=== PATIENT | female | born 1985 | race African-American/Black ===

== ENCOUNTER 2016-05-10 01:36 | Emergency (ER) | payer MEDICAID ==
[~2016-05-10] VITALS: Ht 180.3 cm; Wt 167.6 kg
[~2016-05-10 01:36] MED LIST: BLOOD PRESSURE; BUSP10 PO; HYDR12.56 PO; NAPR500 PO; TYLE500T PO
[2016-05-10 01:41] VITALS: BP 146/84; PULSE 82; RESP 16; TEMP 98.3; O2SAT 96
== END 2016-05-10 04:42 | disposition left against medical advice (07) ==
LOC: NED 01:36
DX: R07.9 Chest pain, unspecified (principal)
CPT/HCPCS: 99281

== ENCOUNTER 2016-07-11 02:32 | Emergency (ER) | payer MEDICAID ==
[~2016-07-11] VITALS: Ht 177.8 cm; Wt 169.0 kg
[2016-07-11 02:43] VITALS: BP 184/82; PULSE 108; RESP 16; TEMP 98.9; O2SAT 98
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
[2016-07-11] MEDS ORDERED: TETANUS/DIPHTHERIA TOXOID ADULT 0.5 ML VIAL IM ONE (03:00)
--- NOTE | 2016-07-11 03:22 | RADRPT ---
EXAM DATE/TIME: 07/11/2016 03:18 [place] COMPARISON: No previous studies available for comparison. INDICATIONS : Back pain from trauma. MEDICAL HISTORY : None. SURGICAL HISTORY : None. ENCOUNTER: Initial ACUITY: 1 day PAIN SCORE: 6/10 LOCATION: Bilateral Lower back FINDINGS: Two view examination was performed. There are five non-rib bearing vertebral bodies. The vertebral bodies are in normal alignment without evidence of subluxation or scoliosis. The disc spaces are chevy ntained. The pedicles are intact. Bony mineralization is normal. No fracture is identified. CONCLUSION: Unremarkable limited examination of the lumbar spine. Tomi Silva MD on July 11, 2016 at 3:21 Board Certified Radiologist. This report was verified electronically.
== END 2016-07-11 04:45 | disposition home or self-care (01) ==
LOC: NEPD 02:32
DX: S61.216A Laceration without foreign body of right little finger without damage to nail, initial encounter (principal); S39.012A Strain of muscle, fascia and tendon of lower back, initial encounter; I10 Essential (primary) hypertension; F17.210 Nicotine dependence, cigarettes, uncomplicated; Y28.1XXA Contact with knife, undetermined intent, initial encounter; Y92.009 Unspecified place in unspecified non-institutional (private) residence as the place of occurrence of the external cause; Z23 Encounter for immunization
CPT/HCPCS: 12001; 72100; 90471; 90714

== ENCOUNTER 2016-12-11 22:21 | Emergency (ER) | payer MEDICAID, OTHER ==
[2016-12-11 22:44] VITALS: BP 167/89; PULSE 102; RESP 20; TEMP 98; O2SAT 100
[2016-12-11 22:52] LABS: AUTOMATED NEUTROPHIL # 5.2 TH/MM3 (1.8-7.7); BASOPHIL # 0.1 TH/MM3 (0-0.2); BASOPHIL % 0.9 % (0.0-2.0); EOSINOPHIL # 0.2 TH/MM3 (0-0.4); EOSINOPHIL % 1.9 % (0.0-4.0); HEMATOCRIT 32.9 % (35.0-46.0); HEMO FLAGS DIFF FINAL; LYMPH % 33.8 % (9.0-44.0); MEAN CELL VOLUME 73.4 FL (80.0-100.0); MEAN CORPUSCULAR HEMOGLOBIN 24.3 PG (27.0-34.0); MEAN CORPUSCULAR HGB CONC 33.1 % (32.0-36.0); MONO % 4.1 % (0.0-8.0); NEUT % 59.3 % (16.0-70.0); PLATELET COUNT 345 TH/MM3 (150-450); RED BLOOD COUNT 4.49 MIL/MM3 (4.00-5.30); RED CELL DISTRIBUTION WIDTH 17.4 % (11.6-17.2); WHITE BLOOD COUNT 8.8 TH/MM3 (4.0-11.0)
[2016-12-11 23:10] LABS: ALT (GPT) 27 U/L (10-53)
[2016-12-11 23:11] LABS: ALKALINE PHOSPHATASE 90 U/L (45-117); TOTAL BILIRUBIN ADULT 0.2 MG/DL (0.2-1.0)
[2016-12-11 23:17] LABS: ANION GAP 7 MEQ/L (5-15); AST (GOT) 20 U/L (15-37); BICARBONATE 24.2 MEQ/L (21.0-32.0); BLOOD UREA NITROGEN 20 MG/DL (7-18); CHLORIDE 108 MEQ/L (98-107); GLOMERULAR FILTRATION RATE 49 ML/MIN (>89); POTASSIUM 4.2 MEQ/L (3.5-5.1); SODIUM (NA) 139 MEQ/L (136-145)
[2016-12-11 23:52] LABS: BACTERIA, URINE RARE /hpf; BLOOD, URINE SMALL (NEG); COMMENT (UR) CULT NOT INDICATED; CULTURE IF INDICATED CULT NOT INDICATED; GLUCOSE,URINE NEG (NEG); KETONE, URINE NEG (NEG); NITRITE,URINE NEG (NEG); PH, URINE 6.5 (5.0-8.5); SQUAMOUS EPITHELIAL CELL URINE 2 /hpf (0-5); URINE COLOR YELLOW (YELLW/STRAW)
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
[2016-12-12 06:29] VITALS: BP 168/95; PULSE 92; RESP 18
--- NOTE | 2016-12-12 08:58 | PD ---
Physical Exam Time Seen by Provider: 08:[address] Rivera has denied with the patient, lifted the Cabral act the patient will be discharged home. Data Data Last Documented VS Vital Signs Date Time Temp Pulse Resp B/P (MAP) Pulse Ox O2 Delivery O2 Flow Rate FiO2 12/12/16 07:35 18 12/12/16 06:29 92 168/95 (119) 12/11/16 22:44 98.0 100 Orders Orders Complete Blood Count With Diff (12/11/16 22:27) Comprehensive Metabolic Panel (12/11/16 22:27) Drug Screen, Random Urine (12/11/16 22:27) Urinalysis - C+S If Indicated (12/11/16 22:27) Psych Screen (12/11/16 22:27) Diet Regular Basic (12/12/16 Breakfast) Labs Laboratory Tests Test 12/11/16 22:37 12/11/16 22:40 Urine Color YELLOW Urine Turbidity CLEAR Urine pH 6.5 Urine Specific [place] 1.020 Urine Protein 300 mg/dL Urine Glucose (UA) NEG mg/dL Urine Ketones NEG mg/dL Urine Occult Blood SMALL Urine Nitrite NEG Urine Bilirubin NEG Urine Urobilinogen LESS THAN 2.0 MG/DL Urine Leukocyte Esterase NEG Urine RBC 5 /hpf Urine WBC 2 /hpf Urine Squamous Epithelial Cells 2 /hpf Urine Bacteria RARE /hpf Microscopic Urinalysis Comment CULT NOT INDICATED Urine Opiates Screen NEG Urine Barbiturates Screen NEG Urine Amphetamines Screen NEG Urine Benzodiazepines Screen NEG Urine Cocaine Screen NEG Urine Cannabinoids Screen NEG White Blood Count 8.8 TH/MM3 Red Blood Count 4.49 MIL/MM3 Hemoglobin 10.9 GM/DL Hematocrit 32.9 % Mean Corpuscular Volume 73.4 FL Mean Corpuscular Hemoglobin 24.3 PG Mean Corpuscular Hemoglobin Concent 33.1 % Red Cell Distribution Width 17.4 % Platelet Count 345 TH/MM3 Mean Platelet Volume 7.1 FL Neutrophils (%) (Auto) 59.3 % Lymphocytes (%) (Auto) 33.8 % Monocytes (%) (Auto) 4.1 % Eosinophils (%) (Auto) 1.9 % Basophils (%) (Auto) 0.9 % Neutrophils # (Auto) 5.2 TH/MM3 Lymphocytes # (Auto) 3.0 TH/MM3 Monocytes # (Auto) 0.4 TH/MM3 Eosinophils # (Auto) 0.2 TH/MM3 Basophils # (Auto) 0.1 TH/MM3 CBC Comment DIFF FINAL Differential Comment Blood Urea Nitrogen 20 MG/DL Creatinine 1.51 MG/DL Random Glucose 124 MG/DL Total Protein 7.1 GM/DL Albumin 2.5 GM/DL Calcium Level 8.4 MG/DL Alkaline Phosphatase 90 U/L Aspartate Amino Transf (AST/SGOT) 20 U/L Alanine Aminotransferase (ALT/SGPT) 27 U/L Total Bilirubin 0.2 MG/DL Sodium Level 139 MEQ/L Potassium Level 4.2 MEQ/L Chloride Level 108 MEQ/L Carbon Dioxide Level 24.2 MEQ/L Anion Gap 7 MEQ/L Estimat Glomerular Filtration Rate 49 ML/MIN MDM Supervised Visit with CORNELIO: No Narrative Course Dr. Rivrea has evaluated the patient, lifted the Cabral act and the patient will be discharged home. Patient contracts safety. Denies suicidal or homicidal ideations. Patient will be provided community resource packet to [facility] for follow-up. Has friends and family for support. Patient is medically cleared for discharge. Diagnosis Primary Impression: Adjustment disorder Qualified Codes: F43.25 - Adjustment disorder with mixed disturbance of emotions and conduct Referrals: [facility] (Out patient) Primary Care Physician Psychiatrist [facility] Patient Instructions: General Instructions, Mood Disorders (ED) Additional Instruction: Contract safety to your self and others Follow-up with psychiatry Follow-up with primary care provider Follow-up with Jt Bhatia Return to the emergency department immediately with worsening of symptoms Med/Other Pt SpecificInfo: No Meds Exist/No RX given Scripts Unable to Obtain Active Prescriptions or Reported Meds Disposition: 01 DISCHARGE HOME Condition: Stable Leela Butt Dec 12, 2016 08:58
[2016-12-12 09:11] VITALS: BP 160/88; TEMP 98
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
== END 2016-12-12 09:14 | disposition home or self-care (01) ==
LOC: NEPJ 22:21
DX: F43.25 Adjustment disorder with mixed disturbance of emotions and conduct (principal); I10 Essential (primary) hypertension; E78.00 Pure hypercholesterolemia, unspecified
CPT/HCPCS: 80053; 80307; 81001; 85025; 99283

== ENCOUNTER 2017-01-02 13:02 | Emergency (ER) | payer MEDICAID, OTHER ==
[~2017-01-02] VITALS: Ht 180.3 cm; Wt 170.0 kg
[2017-01-02 13:04] VITALS: BP 162/80; PULSE 108; RESP 14; TEMP 98; O2SAT 99
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
[2017-01-02 15:11] VITALS: PULSE 89
== END 2017-01-02 15:24 | disposition left against medical advice (07) ==
LOC: NEPK 13:02
DX: M79.672 Pain in left foot (principal); M79.671 Pain in right foot; M25.561 Pain in right knee; M25.562 Pain in left knee
CPT/HCPCS: 99281

== ENCOUNTER 2018-01-28 16:46 | Observation (INO) ==
--- NOTE | 2018-01-28 17:23 | ED ---
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 She states that she is guessing she had a seizure because she had 1 of those recently in October but no one witnessed today because she was by herself. She states at that time she was not started on seizure medications. Today she notes a concurrent frontal headache but denies other concurrent complaints. History is limited as episode was unwitnessed. Related Data Home Medications Medication Instructions Recorded Confirmed lisinopril-hydrochlorothiazide 1 tab PO DAILY 01/28/18 01/28/18 Allergies Allergy/AdvReac Type Severity Reaction Status Date / Time lithium Allergy Unknown Rash Verified 01/28/18 16:49 Review of Systems ROS: all other systems reviewed are negative [facility] Medical History Medical History High cholesterol (Acute) HTN (hypertension) (Acute) Kidney disease (Acute) Seizure (Acute) Surgical History Surgical History Hx of section (Acute) Hx of tubal ligation (Acute) Social History Social History Substance History: No History of Abuse Second Hand Smoke Exposure: No Smoking Status: Current every day smoker Tobacco Type: Cigarettes How Often Do You Have a Drink Containing Alcohol: Never Recent Travel in [place] within the Last 8 Weeks: No Recent Out of Country Travel within the Last 8 Weeks: No Exam Narrative Exam Narrative: GENERAL: 32 y/o female in no apparent distress SKIN: Focused skin assessment warm/dry. HEAD: Atraumatic. Normocephalic. EYES: Pupils equal and round. No scleral icterus. No injection or drainage. ENT: No nasal bleeding or discharge. Mucous membranes pink and moist. NECK: Trachea midline. CARDIOVASCULAR: Regular rate and rhythm. RESPIRATORY: No accessory muscle use. Clear to auscultation. Breath sounds equal bilaterally. GASTROINTESTINAL: Abdomen soft, non-tender, nondistended. MUSCULOSKELETAL: No obvious deformities. No clubbing. No cyanosis. No edema. NEUROLOGICAL: Awake and alert. No obvious cranial nerve deficits. Motor grossly within normal limits. Normal speech. Course Reevaluation(s) Reevaluation #1: Patient updated and agrees to admission Consultations Consultation #1: Dr. Kenney agrees to admission Consultation #2: dr rizo states to admit for workup, will see in am, no seizure meds for now Initial Documented Vital Signs Temperature 99.5 F 01/28/18 16:49 Pulse Rate 102 H 01/28/18 16:49 Respiratory Rate 18 01/28/18 16:49 Blood Pressure 188/92 H 01/28/18 16:49 Pulse Oximetry 98 01/28/18 16:49 Last Documented Vital Signs Temperature 99.5 F 01/28/18 16:49 Pulse Rate 84 01/28/18 19:03 Respiratory Rate 20 01/28/18 19:03 Blood Pressure 147/81 H 01/28/18 19:03 Pulse Oximetry 100 01/28/18 19:03 Medical Decision Making [facility] Narrative Medical decision making narrative: Will check blood work, CT brain and reevaluate Medical Screen Exam Complete: Yes Emergency Medical Condition: Yes Differential Diagnosis Differential Diagnosis: Seizure, syncope, intracranial, anemia, renal failure, vasovagal Lab Data Lab results reviewed: Yes I reviewed the patient's lab results. Result diagrams: 01/28/18 17:15 01/28/18 17:15 Lab Results 01/28/18 01/28/18 01/28/18 Range/Units 17:15 17:15 17:15 CBC w Diff Slide review pending WBC 8.3 (4.0-11.0) th/mm3 RBC 5.03 (4.00-5.30) mil/mm3 Hgb 11.7 (11.6-15.3) gm/dL Hct 35.2 (35.0-46.0) % MCV 69.9 L (80.0-100.0) fL MCH 23.3 L (27.0-34.0) pg MCHC 33.3 (32.0-36.0) % RDW 16.8 (11.6-17.2) % Plt Count 396 (150-450) th/mm3 MPV 7.8 (7.0-11.0) fL Neut % (Auto) 60.5 (16.0-70.0) % Lymph % (Auto) 33.9 (9.0-44.0) % [place] % (Auto) 3.4 (0.0-8.0) % Eos % (Auto) 2.1 (0.0-4.0) % Baso % (Auto) 0.1 (0.0-2.0) % Neut # (Auto) 5.0 (1.8-7.7) th/mm3 Lymph # (Auto) 2.8 (1.0-4.8) th/mm3 [place] # (Auto) 0.3 (0.0-0.9) th/mm3 Eos # (Auto) 0.2 (0.0-0.4) th/mm3 Baso # (Auto) 0.0 (0.0-0.2) th/mm3 WBC Differential . Diff Scan Auto diff confirmed Differential Comment . Sodium 140 (136-145) meq/L Potassium 3.7 (3.5-5.1) meq/L Chloride 107 (98-107) meq/L Carbon Dioxide 24.6 (21.0-32.0) meq/L Anion Gap 8 (5-15) meq/L BUN 21 H (7-18) mg/dL Creatinine 1.20 H (0.50-1.00) mg/dL Estimated GFR 63 L (>89) mL/min Random Glucose 148 H (74-106) mg/dL Calcium 8.4 L (8.5-10.1) mg/dL Magnesium 1.6 (1.5-2.5) mg/dL Total Creatine Kinase 75 (26-192) U/L Imaging Data Attestation: I personally reviewed and interpreted this imaging study as follows : Radiologist's impression: Head CT 01/28/18 17:02 CONCLUSION: Negative noncontrast head CT. . Discharge Plan Discharge Disposition Patient Disposition: 31 Still Patient Discharge Details Diagnosis: Syncope Physicians Team ED Provider: Neha Sanchez Primary Care Provider: UNKNOWN, Attending Provider: Dae Kenney Status ED Status: Admitted Observation Patient
[2018-01-28 17:25] LABS: Baso % (Auto) 0.1 % (0.0-2.0); Eos # (Auto) 0.2 th/mm3 (0.0-0.4); Eos % (Auto) 2.1 % (0.0-4.0); Hematocrit 35.2 % (35.0-46.0); Hemoglobin 11.7 gm/dL (11.6-15.3); Lymph # (Auto) 2.8 th/mm3 (1.0-4.8); Lymph % (Auto) 33.9 % (9.0-44.0); Mean Corpuscular HGB Conc 33.3 % (32.0-36.0); Mean Corpuscular Hemoglobin 23.3 pg (27.0-34.0); Mean Corpuscular Volume 69.9 fL (80.0-100.0); Mean Platelet Volume 7.8 fL (7.0-11.0); Mono # (Auto) 0.3 th/mm3 (0.0-0.9); Mono % (Auto) 3.4 % (0.0-8.0); Neut % (Auto) 60.5 % (16.0-70.0); Platelet Count 396 th/mm3 (150-450); Red Blood Count 5.03 mil/mm3 (4.00-5.30); Red Cell Distribution Width 16.8 % (11.6-17.2); White Blood Count 8.3 th/mm3 (4.0-11.0)
[2018-01-28 17:35] LABS: Potassium 3.7 meq/L (3.5-5.1)
[2018-01-28 17:37] LABS: Calcium 8.4 mg/dL (8.5-10.1)
[2018-01-28 17:38] LABS: Carbon Dioxide 24.6 meq/L (21.0-32.0); Magnesium 1.6 mg/dL (1.5-2.5)
[2018-01-28] MEDS ORDERED: Sod Chloride 0.9% Inj 1,000 ML IV.SIG SCH (17:45)
[2018-01-28] MEDS ORDERED: LORazepam 0.5 MG Tablet PO ONE (17:49)
--- NOTE | 2018-01-28 18:36 | CT ---
EXAM DATE: 01/28/2018 6:19 PM EST AGE/SEX: 32 years / Female INDICATIONS: Seizure. Headache. CLINICAL DATA: This is the patient's initial encounter. Patient reports that signs and symptoms have been present for 1 day and indicates a pain score of 8/10. MEDICAL/SURGICAL HISTORY: Hypertension. Seizures. section. Tubal ligation. RADIATION DOSE: 56.98 CTDI (mGy) COMPARISON: [facility] [place], CT HEAD W/O CONTRAST, 11/01/2017. . TECHNIQUE: CT of the head without contrast. Using automated exposure control and adjustment of the mA and/or kV according to patient size, radiation dose was kept as low as reasonably achievable to ob tain optimal diagnostic quality images. DICOM format image data is available electronically for revi ew and comparison. FINDINGS: Cerebrum: The ventricles are normal for age. No evidence of midline shift, mass lesion, hemorrhage or acute infarction. No extraaxial fluid collections are seen. Posterior Fossa: The cerebellum and brainstem are intact. The 4th ventricle is midline. The cerebe llopontine angle is unremarkable. Extracranial: The visualized portion of the orbits is intact. Skull: The calvaria is intact. No evidence of skull fracture. CONCLUSION: Negative noncontrast head CT. . Electronically signed by: Shashank Alcocer MD 01/28/2018 6:35 PM EST
[2018-01-28] MEDS ORDERED: Bisacodyl 10 MG Supp RECTAL PRN (20:44)
[2018-01-28] MEDS ORDERED: Sod Chloride 0.9% Inj 1,000 ML IV.CONT SCH (20:45)
[2018-01-28] MEDS: Acetaminophen 325 MG Tablet PO PRN (21:59)
[2018-01-28] MEDS: Senna/Docusate Sodium 8.6/50 MG Tablet PO SCH (22:06)
[2018-01-28 22:44] LABS: Bilirubin,Urine Negative (Negative); Clarity,Urine Clear (Clear); Color,Urine Yellow (Yellw/Straw); Glucose,Urine (UA) Negative (Negative); Leukocyte Esterase,Urine Negative (Negative); Nitrite,Urine Negative (Negative); PH,Urine 5.5 (5.0-8.5); Specific Gravity,Urine 1.025 (1.002-1.035); Urobilinogen,Urine 0.2 mg/dL (Less than 2)
[2018-01-28 22:52] LABS: Amphetamine Screen,Urine Neg (Neg); Barbiturate Screen,Urine Neg (Neg)
[2018-01-28 22:53] LABS: Cannabinoid Screen,Urine Neg (Neg); Cocaine Screen,Urine Pos (Neg)
[2018-01-28 23:08] LABS: Opiate Screen,Urine Neg (Neg)
[2018-01-28 23:14] LABS: RBC,Urine 0-3 /hpf (0-3); Squamous Epithelial Cell,Urine 0-5 /hpf (0-5); Trichomonas,Urine Few /hpf; WBC,Urine 0-5 /hpf (0-5)
[2018-01-29 05:57] LABS: Potassium 4.4 meq/L (3.5-5.1)
[2018-01-29 06:00] LABS: Calcium 7.9 mg/dL (8.5-10.1)
[2018-01-29 06:01] LABS: Carbon Dioxide 25.8 meq/L (21.0-32.0)
[2018-01-29] MEDS: Senna/Docusate Sodium 8.6/50 MG Tablet PO SCH ×2 (09:50→21:22)
--- NOTE | 2018-01-29 10:11 | P.HP ---
History of Present Illness Primary Care Physician: UNKNOWN Chief Complaint: Confusion History of Present Illness: This is a 32-year-old female with a history of obesity, hypertension not on medications she stopped lisinopril because of cough, hyperlipidemia, chronic kidney disease stage III and seizure. Patient presents to the emergency department because of confusion. States she slept all day yesterday and was out of it meaning confused. She was also restless and weak. According to her sister, patient has been out of it for the past 3 days. No chills, visual changes, nausea, focal weakness and numbness. She was told she had fever in the ED but not documented in the EMR. Per ED physician, neurology recommended EEG and MRI of the brain and to hold out with Aed. since yesterday she has complained of frontal pressure headache scale of 8 out of 10 with light sensitivity. It felt like " hungry headaches". No history of migraine. She has chronic shortness of breath and apnea and supposed to be on CPAP. UDS positive for cocaine patient admits that she use it for the first time 3 days ago. All other systems reviewed negative Review of Systems All other systems reviewed negative except as stated in HPI PMFSH - History History Provided By: Patient - Medical History Medical History: Medical History (Last Reviewed 01/29/18 @ 10:07 by Dae Kenney MD) High cholesterol HTN (hypertension) Kidney disease Seizure - Surgical History Surgical History: Surgical History (Last Reviewed 01/29/18 @ 10:07 by Dae Kenney MD) Hx of section Hx of tubal ligation - Family History Family History: Family History (Last Updated 01/29/18 @ 10:07 by Dae Kenney MD) Other Family history of acute myocardial infarction - Social History I have reviewed the patient's Social History: Yes - Tobacco History Second Hand Smoke Exposure: Yes Tobacco Use In Past 30 Days: Yes Smoking Status: Current every day smoker Tobacco Type: E-Cigarettes - Alcohol History How Often Do You Have a Drink Containing Alcohol: Never - Substance Use History Substance History: No History of Abuse - Travel History Recent Travel in the [place] Within the Last 8 Weeks: No Recent Travel Out of the Country Within the Last 8 Weeks: No - Immunization History Tetanus Immunization: <5 Years Medications and Allergies Active Medications: Active Medications Acetaminophen (Tylenol) 650 mg PO Q4H PRN PRN Reason: Temp > 100.4/pain Last Admin: 01/28/18 21:59 Dose: 650 mg Amlodipine Besylate (Norvasc) 5 mg PO DAILY [facility] Bisacodyl (Dulcolax Supp) 10 mg RECTAL DAILY PRN PRN Reason: SEVERE CONSITIPATION Clonidine HCl (Catapres) 0.1 mg PO Q6H PRN PRN Reason: SEE LABEL COMMENTS Enalaprilat (Vasotec Inj) 1.25 mg IV.PUSH Q6H PRN PRN Reason: SEE LABEL COMMENTS Lactulose (Lactulose Liq) 30 ml PO DAILY PRN PRN Reason: SEVERE CONSITIPATION Ondansetron HCl (Zofran Inj) 4 mg IV.PUSH Q6H PRN PRN Reason: NAUSEA OR VOMITING Senna/Docusate Sodium (Dariela-Colace) 1 tab PO BID [facility] Last Admin: 01/29/18 09:50 Dose: Not Given Sennosides (Senokot) 17.2 mg PO Q12H PRN PRN Reason: Moderate Constipation Sodium Chloride (Ns Flush) 2 ml IV.FLUSH BID [facility] Last Admin: 01/28/18 22:06 Dose: Not Given Sodium Chloride (Ns Flush) 2 ml IV.FLUSH PRN PRN PRN Reason: FLUSH AFTER USING IV ACCESS Allergies Allergy/AdvReac Type Severity Reaction Status Date / Time lithium Allergy Unknown Rash Verified 01/28/18 16:49 Home Medications Medication Instructions Recorded Confirmed Type lisinopril-hydrochlorothiazide 1 tab PO DAILY 01/28/18 01/28/18 History Exam Vital signs: Vital Signs 01/28/18 16:49 01/28/18 17:21 01/28/18 17:38 Temperature 99.5 F Pulse Rate 102 H 86 Respiratory Rate 18 Blood Pressure 188/92 H Pulse Oximetry 98 100 01/28/18 19:03 01/28/18 20:00 01/29/18 00:00 Temperature 98.4 F 97.6 F Pulse Rate 84 78 87 Respiratory Rate 20 18 18 Blood Pressure 147/81 H 140/93 H 154/73 H Pulse Oximetry 100 98 93 L 01/29/18 04:00 01/29/18 08:00 Temperature 98.1 F 98.6 F Pulse Rate 68 82 Respiratory Rate 18 22 Blood Pressure 142/88 H 170/88 H Pulse Oximetry 93 L 97 Intake & Output 01/28/18 01/29/18 01/29/18 18:59 06:59 18:59 Intake Total 1400 / 1400 1000 / 1000 Output Total 750 / 750 Balance 650 / 650 1000 / 1000 Weight 168.2 kg 170.1 kg Intake: IV 1000 / 1000 1000 / 1000 NS Inj 1,000 ML @ 100 mls/hr IV 1000 / 1000 .CONT .Q10H SOFY Rx#:[id number] NS Inj 1,000 ML @ 1000 mls/hr 1000 / 1000 IV.SIG BOLUS OSFY Rx#:[id number] Oral 400 / 400 Output: Urine 750 / 750 Other: Weight On Admission 170.1 kg Narrative: GENERAL: WD obese in no distress SKIN: Warm and dry. HEAD: Atraumatic. Normocephalic. EYES: Pupils equal and round. No scleral icterus. No injection or drainage. ENT: No nasal bleeding or discharge. Mucous membranes pink and moist. NECK: Trachea midline. No JVD. No nuchal rigidity supple CARDIOVASCULAR: Regular rate and rhythm. RESPIRATORY: No accessory muscle use. Clear to auscultation. Breath sounds equal bilaterally. GASTROINTESTINAL: Abdomen soft, non-tender, obese MUSCULOSKELETAL: Extremities without clubbing, cyanosis, or edema. No obvious deformities. NEUROLOGICAL: Awake and alert. No obvious cranial nerve deficits. Motor grossly within normal limits. Five out of 5 muscle strength in the arms and legs. Normal speech. PSYCHIATRIC: Appropriate mood and affect; insight and judgment normal. Results - Labs CBC & Chem 7: 01/28/18 17:15 01/29/18 04:35 Labs: Laboratory Results - last 24 hr 01/28/18 01/28/18 01/28/18 17:15 17:15 17:15 CBC w Diff Slide review pending WBC 8.3 RBC 5.03 Hgb 11.7 Hct 35.2 MCV 69.9 L MCH 23.3 L MCHC 33.3 RDW 16.8 Plt Count 396 MPV 7.8 Neut % (Auto) 60.5 Lymph % (Auto) 33.9 [place] % (Auto) 3.4 Eos % (Auto) 2.1 Baso % (Auto) 0.1 Neut # (Auto) 5.0 Lymph # (Auto) 2.8 [place] # (Auto) 0.3 Eos # (Auto) 0.2 Baso # (Auto) 0.0 WBC Differential . Diff Scan Auto diff confirmed Differential Comment . Sodium 140 Potassium 3.7 Chloride 107 Carbon Dioxide 24.6 Anion Gap 8 BUN 21 H Creatinine 1.20 H Estimated GFR 63 L Random Glucose 148 H Calcium 8.4 L Magnesium 1.6 Total Creatine Kinase 75 Urine Color Urine Clarity Urine pH Ur Specific [place] Urine Protein Urine Glucose (UA) Urine Ketones Urine Occult Blood Urine Nitrate Urine Bilirubin Urine Urobilinogen Ur Leukocyte Esterase Urine RBC Urine WBC Ur Squamous Epith Cells Urine Trichomonas Micro UA Comment Ur Microscopic Review Urine Culture Comments Urine Opiates Screen Ur Barbiturates Screen Ur Amphetamines Screen U Benzodiazepines Scrn Urine Cocaine Screen U Cannabinoids Screen 01/28/18 01/28/18 01/29/18 22:00 22:00 04:35 CBC w Diff WBC RBC Hgb Hct MCV MCH MCHC RDW Plt Count MPV Neut % (Auto) Lymph % (Auto) [place] % (Auto) Eos % (Auto) Baso % (Auto) Neut # (Auto) Lymph # (Auto) [place] # (Auto) Eos # (Auto) Baso # (Auto) WBC Differential Diff Scan Differential Comment Sodium 139 Potassium 4.4 Chloride 107 Carbon Dioxide 25.8 Anion Gap 6 BUN 20 H Creatinine 1.20 H Estimated GFR 63 L Random Glucose 106 Calcium 7.9 L Magnesium Total Creatine Kinase Urine Color Yellow Urine Clarity Clear Urine pH 5.5 Ur Specific [place] 1.025 Urine Protein 100 H Urine Glucose (UA) Negative Urine Ketones Negative Urine Occult Blood Small H Urine Nitrate Negative Urine Bilirubin Negative Urine Urobilinogen 0.2 Ur Leukocyte Esterase Negative Urine RBC 0-3 Urine WBC 0-5 Ur Squamous Epith Cells 0-5 Urine Trichomonas Few H Micro UA Comment Culture not ind Ur Microscopic Review Microscopic reviewed Urine Culture Comments Culture not ind Urine Opiates Screen Neg Ur Barbiturates Screen Neg Ur Amphetamines Screen Neg U Benzodiazepines Scrn Neg Urine Cocaine Screen Pos H U Cannabinoids Screen Neg - Imaging Impressions Head CT 01/28/18 17:02 CONCLUSION: Negative noncontrast head CT. . Caprini VTE Risk Assessment Caprini VTE Risk Assessment: No/Low Risk (score <= 1) Caprini Risk Assessment Model: Point Value = 1 Point Value = 2 Point Value = 3 Point Value = 5 Age 41-60 Minor surgery BMI > 25 kg/m2 Swollen legs Varicose veins or History of unexplained or recurrent spontaneous Oral contraceptives or hormone replacement Sepsis (< 1 month) Serious lung disease, including pneumonia (< 1 month) Abnormal pulmonary function Acute myocardial infarction Congestive heart failure (< 1 month) History of inflammatory bowel disease Medical patient at bed rest Age 61-74 Arthroscopic surgery Major open surgery (> 45 min) Laparoscopic surgery (> 45 min) Malignancy Confined to bed (> 72 hours) Immobilizing plaster cast Central venous access Age >= 75 History of VTE Family history of VTE Factor V Leiden Prothrombin [id number] Lupus anticoagulant Anticardiolipin antibodies Elevated serum homocysteine Heparin-induced thrombocytopenia Other congenital or acquired thrombophilia Stroke (< 1 month) Elective arthroplasty Hip, pelvis, or leg fracture Acute spinal cord injury (< 1 month) Prophylaxis Regimen: Total Risk Factor Score Risk Level Prophylaxis Regimen 0-1 Low Early ambulation 2 Moderate Order ONE of the following: *Sequential Compression Device (SCD) *Heparin 5000 units SQ BID 3-4 Higher Order ONE of the following medications: *Heparin 5000 units SQ TID *Enoxaparin/Lovenox 40 mg SQ daily (WT < 150 kg, CrCl > 30 mL/min) *Enoxaparin/Lovenox 30 mg SQ daily (WT < 150 kg, CrCl > 10-29 mL/min) *Enoxaparin/Lovenox 30 mg SQ BID (WT < 150 kg, CrCl > 30 mL/min) AND/OR *Sequential Compression Device (SCD) 5 or more Highest Order ONE of the following medications: *Heparin 5000 units SQ TID (Preferred with Epidurals) *Enoxaparin/Lovenox 40 mg SQ daily (WT < 150 kg, CrCl > 30 mL/min) *Enoxaparin/Lovenox 30 mg SQ daily (WT < 150 kg, CrCl > 10-29 mL/min) *Enoxaparin/Lovenox 30 mg SQ BID (WT < 150 kg, CrCl > 30 mL/min) AND *Sequential Compression Device (SCD) Assessment and Plan - Plan This is a 32-year-old female with a history of obesity, hypertension not on medications she stopped lisinopril because of cough, hyperlipidemia, chronic kidney disease stage III and seizure. Patient presents to the emergency department because of confusion, headache and weakness. Head CT negative for acute findings. UDS positive for cocaine. Toxic encephalopathy with a history of seizure. At this time she is neurologically intact and stable. Head CT without acute findings. Follow-up pending EEG and MRI. Seizure precautions. Follow-up neurology consult. Headache with uncontrolled hypertension. Start Norvasc if MRI shows no acute stroke. Cocaine abuse. Counseled. DVT prophylaxis with SCD Discharge Planning: Discharge patient to home Condition on discharge: Improved Regular Diet as tolerated Ad Eva activity, no driving, swimming alone, carrying young children and climbing heights Rx written: [facility] Follow-up with primary care physician and neurology
[2018-01-29] MEDS: amLODIPine 5 MG Tablet PO SCH (10:13)
[2018-01-29] MEDS: Acetaminophen 325 MG Tablet PO PRN ×2 (10:15→16:41)
--- NOTE | 2018-01-29 14:21 | MG ---
cc: Dominick Boone MD, PhD TEST NUMBER: [id number] TECHNIQUE: A 17-channel EEG. DESCRIPTION: The background rhythm reveals symmetrical alpha activity, frequency 8-10 Hz, amplitude 20-30 microvolts. During drowsiness, there is mild slowing in the theta range. There is some muscle artifact present. No epileptiform features seen. The patient does fall asleep. There is slowing in the delta frequency with sleep spindles, which is normal sleep activity. There are a couple of vertex sharp waves. Photic stimulation results in a fairly well-developed and symmetrical driving response. INTERPRETATION: Normal electroencephalogram. Dominick Boone MD, PhD SALEEM/nacho , 02:07 PM , 02:12 PM
--- NOTE | 2018-01-29 21:39 | MB ---
cc: Dominick Boone MD, PhD DATE: 01/29/2018 REASON FOR CONSULTATION: Mental status change, possible seizure. HISTORY OF PRESENT ILLNESS: Ms. Barrett is a 32-year-old female who yesterday states she had one of her "usual spells," then was confused and disoriented afterwards with a headache. She states she has had seizures for the past 3 years, occurring about once a year. She loses consciousness. Her sister says she has generalized twitching activity for about half an hour and then is confused for a period of time afterwards. She states she normally takes Xanax 2 mg b.i.d., which she stopped about a week ago abruptly. She took Adderall, her sister's Adderall dose. Her urine tox screen tested positive for cocaine. She states that she feels that was because she took the Adderall and denies cocaine use. PAST MEDICAL HISTORY: History of seizures, kidney stones, hypertension, hypercholesterolemia. NEUROLOGIC EXAMINATION: VITAL SIGNS: Blood pressure 141/75, pulse 81, respiratory rate 18, temperature 98 degrees. HIGHER CORTICAL FUNCTION: Normal. CRANIAL NERVES: Intact. MOTOR: Normal strength and tone in all groups. There is no drift. Fine motor skills are normal. Reflexes are symmetric. DIAGNOSTIC DATA: EEG is normal. Head CT without contrast is normal for age, no acute change. LABORATORY DATA: White count 8300, hemoglobin 11.7, hematocrit 35.2%, platelet count 396,000. Sodium 140, potassium 2.7, chloride 107, CO2 of 24.6, BUN 21, creatinine 1.2, GFR 62, glucose 148. Tox screen positive for cocaine. IMPRESSION: Episode of what sounds like a seizure with postictal state, possibly related to Xanax withdrawal, possible? cocaine. She has had episodes in the past as well. At the present time, would not recommend anticonvulsants and would recommend an MRI of the brain. She was counseled to not stop Xanax abruptly in the future, not to use cocaine and also recommended against any stimulant such as Adderall. Dominick Boone MD, PhD SALEEM/nacho , 09:16 PM , 09:24 PM
[2018-01-30] MEDS: Acetaminophen 325 MG Tablet PO PRN (01:09)
--- NOTE | 2018-01-30 07:52 | P.PN ---
Subjective Interval history: Follow-up for migraine headache, possible seizure activity, cocaine abuse. Patient is currently resting in bed. Tolerating diet well. No fever or chills. No further seizure episodes. She complains of significant migraine headache this morning. Physical Exam Vital signs: Vital Signs 01/29/18 08:00 01/29/18 09:00 01/29/18 12:00 Temperature 98.6 F Pulse Rate 82 83 76 Respiratory Rate 22 Blood Pressure 170/88 H Pulse Oximetry 97 01/29/18 13:50 01/29/18 14:32 01/29/18 16:00 Temperature 97.8 F 97.7 F Pulse Rate 74 72 Respiratory Rate 18 Blood Pressure 133/64 139/63 Pulse Oximetry 100 100 01/29/18 20:00 01/30/18 00:00 01/30/18 04:00 Temperature 98.1 F 97.7 F 96.5 F L Pulse Rate 81 82 69 Respiratory Rate 18 18 Blood Pressure 141/75 H 141/67 H 174/98 H Pulse Oximetry 94 L 95 94 L Intake & Output 01/29/18 01/30/18 01/30/18 18:59 06:59 18:59 Intake Total 1000 / 1000 400 / 400 Output Total 850 / 850 Balance 1000 / 1000 -450 / -450 Weight 172.6 kg Intake: IV 1000 / 1000 NS Inj 1,000 ML @ 100 mls/hr IV 1000 / 1000 .CONT .Q10H SOFY Rx#:[id number] Oral 400 / 400 Output: Urine 850 / 850 Other: # Voids 7 # Bowel Movements 1 Narrative: GENERAL: Alert, oriented x3, NAD. SKIN: Warm and dry. HEAD: Normocephalic. EYES: No scleral icterus. No injection or drainage. NECK: Supple, trachea midline. No JVD or lymphadenopathy. CARDIOVASCULAR: Regular rate and rhythm without murmurs, gallops, or rubs. RESPIRATORY: Breath sounds equal bilaterally. No accessory muscle use. GASTROINTESTINAL: Abdomen soft, non-tender, nondistended. MUSCULOSKELETAL: No cyanosis, or edema. BACK: Nontender without obvious deformity. No CVA tenderness. Results - Labs CBC & Chem 7: 01/28/18 17:15 01/29/18 04:35 Laboratory Results - last 24 hr 01/29/18 04:35 Total Creatine Kinase 67 - Imaging Head CT 01/28/18 17:02 CONCLUSION: Negative noncontrast head CT. Assessment and Plan - Plan Ms. Barrett is a 32-year-old female with a history of morbid obesity, hypertension, hyperlipidemia, chronic kidney disease who was admitted to the hospital on 01/29/2018 due to confusion. Neurology was consulted for possible seizure disorder. EEG is negative. Neurology recommended MRI brain. UDS was positive for cocaine. Toxic encephalopathy -Currently asymptomatic. -MRI pending. Appreciate neurology commendations. Migraine headache Hypertension -Use Tylenol and will give 1 dose of 30 mg Toradol IV -Continue amlodipine 5 mg daily. Cocaine abuse -patient this morning denies using cocaine. Patient is counseled. Morbid obesity with BMI 53.1 Full code. Ambulation. Will discharge patient once MRI results reported.
[2018-01-30] MEDS ORDERED: Ketorolac Inj 30 MG/ML (IVP) Vial IV.PUSH ONE (07:53)
[2018-01-30] MEDS: Senna/Docusate Sodium 8.6/50 MG Tablet PO SCH (08:07)
[2018-01-30] MEDS: amLODIPine 5 MG Tablet PO SCH (08:07)
[2018-01-30 08:24] VITALS: BP 122/79; PULSE 76; RESP 16; TEMP 98.7; O2SAT 98
--- NOTE | 2018-01-30 12:05 | MR ---
EXAM DATE: 01/30/2018 11:54 AM EST AGE/SEX: 32 years / Female INDICATIONS: Cephalgia. CLINICAL DATA: This is the patient's initial encounter. Patient reports that signs and symptoms have been present for 2 days and indicates a pain score of 4/10. MEDICAL/SURGICAL HISTORY: Hypertension. section. COMPARISON: [facility], CT HEAD W/O CONTRAST, 01/28/2018. . TECHNIQUE: Multiplanar, multisequence examination of the brain was performed without contrast. FINDINGS: There is no evidence for intracranial hemorrhage, mass effect, mass lesions, edema, or extra-axial fl uid collections. The ventricles are normal size for the patient's age. There are no signs of acute infarction for technique. The diffusion portion is unremarkable. There is mucous retention cyst with in the left maxillary sinus with slight mucoperiosteal thickening within some of the ethmoid air cell s on the left. CONCLUSION: Unremarkable study except for chronic sinusitis. Electronically signed by: Anjum Diaz MD 01/30/2018 12:03 PM EST
== END 2018-01-30 14:26 | disposition home or self-care (01) ==
LOC: PHEDA 16:46 → PHED 16:46 → PH3 20:48
PROVIDERS: ADMIT Hospitalist; ATTEND Hospitalist